=== PATIENT | male | born 1980 | race Caucasian/White ===

== ENCOUNTER 2017-03-01 21:30 | Emergency (ER) | payer OTHER ==
[~2017-03-01] VITALS: Ht 182.9 cm; Wt 90.7 kg
[2017-03-01] MEDS ORDERED: ALBUTEROL2.5 MG/3 M (21:53)
[2017-03-01] MEDS ORDERED: SYMBICORT 16010.2 GM (21:53)
== END 2017-03-02 00:25 | disposition home or self-care (01) ==
LOC: ER 21:30
DX: S60.811A Abrasion of right wrist, initial encounter (principal); S80.212A Abrasion, left knee, initial encounter; V19.88XA Pedal cyclist (driver) (passenger) injured in other specified transport accidents, initial encounter; Y93.55 Activity, bike riding; Y92.488 Other paved roadways as the place of occurrence of the external cause; Y99.8 Other external cause status

== ENCOUNTER 2017-03-09 13:43 | Emergency (ER) | payer OTHER ==
[~2017-03-09] VITALS: Ht 182.9 cm; Wt 90.7 kg
[~2017-03-09 13:43] MED LIST: ALBUTEROL2.5 MG/3 M; SYMBICORT 16010.2 GM
== END 2017-03-09 17:23 | disposition home or self-care (01) ==
LOC: ER 13:43
DX: R07.89 Other chest pain (principal); G89.11 Acute pain due to trauma

== ENCOUNTER 2018-03-08 11:28 | Emergency (ER) | payer OTHER ==
[~2018-03-08] VITALS: Ht 182.9 cm; Wt 85.7 kg
== END 2018-03-08 15:08 | disposition home or self-care (01) ==
LOC: ER 11:28
DX: B34.9 Viral infection, unspecified (principal)

== ENCOUNTER 2018-09-06 10:15 | Emergency (ER) | payer OTHER ==
[~2018-09-06] VITALS: Ht 182.9 cm; Wt 83.5 kg
[2018-09-06] MEDS ORDERED: NAPROXEN500 MG PO (12:42)
[2018-09-06] MEDS ORDERED: NORFLEX100MG PO (12:42)
== END 2018-09-06 13:08 | disposition home or self-care (01) ==
LOC: ER 10:15
DX: M54.5 Low back pain (principal)

== ENCOUNTER 2021-09-21 09:47 | Outpatient (CLI) | payer OTHER ==
[~2021-09-21 09:47] MED LIST changes: +NAPROXEN500 MG PO; +NORFLEX100MG PO
== END 2021-09-21 09:51 | disposition home or self-care (01) ==
LOC: LAB 09:47
PROVIDERS: ATTEND Obstetrics & Gynecology
DX: Z20.828 Contact with and (suspected) exposure to other viral communicable diseases (principal); Z20.818 Contact with and (suspected) exposure to other bacterial communicable diseases